=== PATIENT | female | born 1985 | race Caucasian/White ===

== ENCOUNTER 2020-06-19 11:59 | Emergency (ER) | payer SELFPAY ==
[~2020-06-19] VITALS: Ht 160 cm; Wt 99.8 kg
[2020-06-19 12:00] VITALS: BP_SYST 120
--- NOTE | 2020-06-19 12:00 | NUR ---
Pt brought to ER via [facility] ambulance for ETOH, medic states there was meth supplies on scene however pt only admits to ETOH no drug use. Denies pain at this time, VSS, awaiting MD.
--- NOTE | 2020-06-19 12:00 | NUR ---
Patient to ER bed 4 to gown for evaluation. Side rails up.
--- NOTE | 2020-06-19 12:10 | NUR ---
REYMUNDO Melendez at bedside examining patient.
[2020-06-19] MEDS ORDERED: NACL 0.9% 1,000 ML IV ONE (12:30)
--- NOTE | 2020-06-19 12:30 | NUR ---
Pt agitated attempting to get out of bed and walk around
--- NOTE | 2020-06-19 12:45 | NUR ---
Pt attempted to AMA, AO4, steady gait, able to follow commands.
--- NOTE | 2020-06-19 12:55 | NUR ---
Pt collapsed while attmepting to AMA, brought back into ER for further evaluation
[2020-06-19 12:59] LABS: BASOPHILS # (AUTO) 0.1 K/uL (0.0-0.2); BASOPHILS % (AUTO) 1.3 % (0.0-2.0); EOSINOPHILS # (AUTO) 0.4 K/uL (0.0-0.4); HEMATOCRIT 36.2 % (36-48); HEMOGLOBIN 11.1 g/dL (12.0-16.0); LYMPHOCYTES # (AUTO) 2.2 K/uL (1.0-5.5); LYMPHOCYTES % (AUTO) 39.8 % (20.5-51.5); MEAN CORPUSCULAR HEMOGLOBIN 25 pg (27-31); MEAN CORPUSCULAR HGB CONC 31 % (32-36); MEAN CORPUSCULAR VOLUME 80 fL (79.0-98.0); MONOCYTES # (AUTO) 0.4 K/uL (0.0-1.0); MONOCYTES % (AUTO) 6.7 % (1.7-9.3); NEUTROPHILS # (AUTO) 2.5 K/uL (1.8-7.7); NEUTROPHILS % (AUTO) 45.2 % (40.0-70.0); PLATELET COUNT (AUTO) 317 K/uL (130-430); RED BLOOD CELL COUNT(AUTO) 4.54 MIL/uL (4.2-6.2); RED CELL DISTRIBUTION WIDTH 19.1 % (9.0-15.0); WHITE BLOOD COUNT (AUTO) 5.5 K/uL (4.8-10.8)
--- NOTE | 2020-06-19 13:10 | NUR ---
Medication administered, on monitor, asleep at this time.
[2020-06-19 13:14] LABS: ANION GAP 13 (5-15); CALCIUM 8.1 mg/dL (8.4-11.0); CHLORIDE 105 mmol/L (98-107); CREATININE 0.47 mg/dL (0.55-1.30); GLUCOSE 91 mg/dL (70-99); POTASSIUM 3.8 mmol/L (3.5-5.1); SODIUM SERUM 143 mmol/L (136-145); UREA NITROGEN, BLOOD 7 mg/dL (8-21)
[2020-06-19] MEDS ORDERED: HALOPERIDOL LACTATE 5 MG/ML VIAL IVP ONE (13:15)
[2020-06-19] MEDS ORDERED: HALOPERIDOL LACTATE 5 MG/ML VIAL IM ONE (13:15)
[2020-06-19 13:17] LABS: GFR AFRICAN AMERICAN 192 mL/min (>90)
[2020-06-19 13:20] LABS: INR 0.9 (0.8-1.2); PROTHROMBIN TIME 9.6 SECS (9.5-12.5)
[2020-06-19 13:25] LABS: ALANINE AMINOTRANSFERASE 45 U/L (12-78); ALBUMIN 3.5 g/dL (3.4-4.8); ASPARTATE AMINOTRANSFERASE 71 U/L (10-37); TOTAL BILIRUBIN 0.2 mg/dL (0.0-1.0)
[2020-06-19 13:26] LABS: ACETAMINOPHEN < 1 ug/mL (1-30); HCG,QUANTITATIVE 1 mIU/ML (0-6)
[2020-06-19] MEDS ORDERED: MIDAZOLAM HCL 5 MG/5 ML VIAL IM ONE (13:30)
[2020-06-19] MEDS ORDERED: MIDAZOLAM HCL 5 MG/5 ML VIAL ONE (13:31)
--- NOTE | 2020-06-19 15:31 | NUR ---
Pt asleep in [facility] at this time on monitor VSS.
--- NOTE | 2020-06-19 17:50 | NUR ---
Pt awake in [facility] at this time, VSS
--- NOTE | 2020-06-19 19:00 | NUR ---
Dr Sanchez ambulated patient, stated pt is ok to be discharged.
--- NOTE | 2020-06-19 21:22 | NUR ---
PATIENT USING PERSONAL CELL PHONE TO CALL HER BOYFRIEND WHO IS SUPPOSED TO BE PICKING HER UP. PT AWAKE & ALERT, ABLE TO RESPOND APPROPRIATELY, NO SIGNS OF ACUTE DISTRESS.
--- NOTE | 2020-06-19 21:55 | NUR ---
ATTEMPTED TO CALL BOYFRIENRahat HAZEL AT . WENT TO VOICEMAIL AND VOICEMAIL IS FULL.
--- NOTE | 2020-06-19 22:06 | NUR ---
BOYFRIEND CALLED AND SAID HE WOULD BE HERE IN AN HOUR. PT SLEEPING IN BED. NO SIGNS OF ACUTE DISTRESS. BREATHING EVEN AND UNLABORED. WILL CONTINUE TO MONTIOR.
[2020-06-19 23:53] VITALS: BP_SYST 116
--- NOTE | 2020-06-19 23:53 | NUR ---
Patient given written and verbal discharge instructions and verbalizes understanding. ER MD discussed with patient the results and treatment provided. Patient in stable condition. ID arm band removed. NO Rx given. Patient educated on pain management and to follow up with PMD. Pain Scale 0/10. Opportunity for questions provided and answered. Medication side effect fact sheet provided.
== END 2020-06-19 23:53 | disposition home or self-care (01) ==
LOC: SED 11:59
DX: F10.129 Alcohol abuse with intoxication, unspecified (principal)
CPT/HCPCS: 36415; 70450; 71045; 80053; 84484; 84702; 85025; 85610; 85730; 93005; 96360; 96372; 99285; G0480; G0481; J1630; J2250; J7030; 76376